=== PATIENT | female | born 2000 | race African-American/Black ===

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

== ENCOUNTER 2019-01-25 10:58 | Inpatient (IN) | payer OTHER ==
[2019-01-25 11:40] VITALS: BMI 36.0
[2019-01-25] MEDS ORDERED: Butorphanol Tartrate 1 MG/ML VIAL SLOW IVP PRN ×2 (12:09→12:57)
[2019-01-25] MEDS: Lactated Ringer's 1,000 ML IV SCH ×2 (12:55→15:07)
[2019-01-25] MEDS ORDERED: Promethazine HCl 25 MG/ML VIAL IM PRN ×2 (12:57→14:37)
[2019-01-25] MEDS ORDERED: Lidocaine 1% (PF) 30 ML VIAL SC PRN (12:57)
[2019-01-25] MEDS ORDERED: Acetaminophen 500 MG TAB PO PRN (12:57)
[2019-01-25] MEDS ORDERED: Docusate 100 MG CAP PO PRN (12:57)
[2019-01-25] MEDS ORDERED: hydrALAZINE 20 MG/ML VIAL SLOW IVP PRN ×2 (12:57→19:25)
[2019-01-25] MEDS ORDERED: Ondansetron PF 4 MG/2 ML Vial IVP PRN ×2 (12:57→14:37)
[2019-01-25] MEDS ORDERED: NS / Oxytocin 40 units/1000ml 1,000 ML IV PRN (12:57)
[2019-01-25] MEDS ORDERED: Ibuprofen 800 MG TAB PO PRN (12:57)
[2019-01-25] MEDS ORDERED: Penicillin G Potassium 5 MILL.UNITS VIAL ONE (12:58)
[2019-01-25] MEDS ORDERED: Sodium Chloride 0.9% 100 ML ONE (12:58)
[2019-01-25] MEDS ORDERED: Penicillin G Potassium 5 MILL.UNITS in Sodium Chloride 0.9% 100 ML IVPB SCH (13:00)
--- NOTE | 2019-01-25 13:20 | HP ---
This is a patient of Aletha Stark, who is currently unavailable and we are assuming care. The patient is seen at bedside by me at 1250 to 1300. LOCATION: R bed 7. REASON FOR ADMISSION: Early spontaneous labor at 37 weeks and 4 days. HISTORY OF PRESENT ILLNESS: This is a 18-year-old, G1, P0, with an EDC of February 11, puts her at 37 weeks and 4 days here with regular contractions about every 3 to 5 minutes. She denies rupture of membranes or vaginal bleeding. She has good movement. She denies any complications. She states that her GBS was just collected this last past Sunday and she does not know the results of that. REVIEW OF SYSTEMS: Complete review of systems was checked and is otherwise negative unless specified in the HPI. PAST MEDICAL HISTORY: Negative. PAST SURGICAL HISTORY: Negative. SOCIAL HISTORY: Negative for alcohol, tobacco, or drug use. ALLERGIES: NONE. PAST OB HISTORY: That she is a primigravida. PHYSICAL EXAMINATION: VITAL SIGNS: Blood pressure is 148/82, heart rate is 80s to 90s, respirations are 18 and nonlabored. GENERAL: She is in no acute distress. ABDOMEN: Soft and nontender. No vaginal bleeding or rupture of membranes noted on exam. I did not perform a cervical exam, but the nurse who called for admission, told me that she was 3 cm dilated, but completely effaced, and zero station with a tight bulging bag of water at the external cervical os. monitor; I have reviewed the heart tracing and the heart tones are in the 130s to 140s and they are category I. Contractions are noted on tocodynamometer about every 3 to 5 minutes. ASSESSMENT: This is a 18-year-old, G1, P0, at 37 weeks with unknown GBS with a first blood pressure of 148/82, unclear if this is pain related or true preeclampsia/PIH. PLAN: 1. Admit to Labor and Delivery. 2. We will follow blood pressures. 3. I have ordered a CMP and a CBC as part of her evaluation. 4. I will not order a urine protein as she is already in labor and urine protein will not alter my management at this time. 5. If blood pressure continues to be high, we will initiate magnesium sulfate and I did discuss that with the patient, but as of right now, we will just continue to follow her. Job ID: [id number]
[2019-01-25 13:24] LABS: Hemoglobin 12.8 g/dL (12.0-16.0); Mean Corpuscular HGB CONC 34.2 g/dL (32.0-36.0); Mean Corpuscular Hemoglobin 29.9 pg (25.0-35.0); Mean Corpuscular Volume 87.4 fL (78.0-98.0); Mean Platelet Volume 9.3 fL (7.4-10.4); Platelet Count 211 thou/uL (130-400); RBC Distribution Width 12.4 % (11.5-14.5); Red Blood Cell (RBC) Count 4.29 mill/uL (4.00-5.20)
[2019-01-25] MEDS ORDERED: Fentanyl 4 mcg/Bup 0.1% Cadd 100 ML ONE (13:42)
[2019-01-25] MEDS ORDERED: NS / Oxytocin 40 units/1000ml 1,000 ML ONE (13:55)
[2019-01-25] MEDS ORDERED: Lidocaine 1% (PF) 30 ML VIAL ONE (13:55)
[2019-01-25 13:57] LABS: HBSAg Index 0.17 S/CO (0-0.99); Hep B Surf Ag Non-Reactive S/CO (NonReactive)
[2019-01-25 13:58] LABS: ALT (SGPT) 8 U/L (8-55); AST (SGOT) 12 U/L (5-30); Albumin 3.6 g/dL (3.5-5.0); Alkaline Phosphatase 135 U/L (40-100); Anion Gap 12 mmol/L (10-20); BUN (Urea Nitrogen) 6 mg/dL (8.4-21.0); Bilirubin, Total 0.3 mg/dL (0.2-1.2); Calc. Creatinine Clearance 248 mL/min (70-130); Carbon Dioxide 21 mmol/L (22-29); Chloride 108 mmol/L (98-107); Estimated GFR-MDRD Greater than 90; Globulin 2.7 g/dL (2.4-3.5); Glucose 82 mg/dL (70-105); Potassium 3.7 mmol/L (3.5-5.1); Protein, Total 6.3 g/dL (6.0-8.3); Sodium 137 mmol/L (136-145)
[2019-01-25 14:04] LABS: Syphilis Antibody Nonreactive (Nonreactive); Syphilis Antibody Index 0.04 S/CO (<1.00 Non-Reactive)
[2019-01-25] MEDS ORDERED: Naloxone HCl 0.4 mg/ml Vial IVP PRN ×2 (14:37)
[2019-01-25] MEDS ORDERED: Lactated Ringer's 500 ML IV PRN (14:37)
[2019-01-25] MEDS ORDERED: ePHEDrine/0.9% NaCl/PF SYRINGE 50 mg/10 ml SLOW IVP PRN (14:37)
[2019-01-25] MEDS ORDERED: diphenhydrAMINE 50 MG/ML VIAL IVP PRN (14:37)
[2019-01-25] MEDS ORDERED: Acetaminophen 325 MG TAB PO PRN (14:37)
[2019-01-25] MEDS ORDERED: Fentanyl 4 mcg/Bupivacaine 0.1% Cassette 100 ML EPIDURAL SCH (14:45)
[2019-01-25] MEDS ORDERED: Communication Order-Pharmacy FS SCH (14:45)
[2019-01-25] MEDS: Penicillin G 2.5 MILL.units 2.5 MILL.UNITS in Premix Bag 1 BAG IVPB SCH (17:57)
--- NOTE | 2019-01-25 19:24 | PDOC.OPDEL ---
OB Operative/Delivery Note Delivery Dr/Surgeon: Lamberto (staff) Assist: Shane LIMA: karen Pre-Delivery Diagnosis: active labor, other (GBS pos; variables just prioir to delivery) Procedure/Post Delivery Dx: spontaneous vaginal delivery Anesthesia: epidural - Findings A Sex: male - 1 min: 8 - 5 min: 9 - Additional Findings/Plan Repaired Obstetrical Laceration: 1st degree (left periurethral, repaired by Dr Angelo (3-[address]); after indwelling I/O placed to protect urethra.) Estimated blood loss: 200 Compilations/Other Findings: No NC; baby vigorous; 3VC, placenta delivered at 1919 (5 minutes after baby; baby at 1914). Will placental delivery. NICU present for delivery Post delivery plan: routine recovery
[2019-01-25] MEDS ORDERED: Benzocaine-Menthol 82.5 ML CAN TOP PRN (19:25)
[2019-01-25] MEDS ORDERED: Bisacodyl 10 MG SUPP PR PRN (19:25)
[2019-01-25] MEDS ORDERED: Acetaminophen/Codeine 30-300mg Tablet PO PRN ×2 (19:25)
[2019-01-25] MEDS ORDERED: Milk Of Magnesia 30 ML UDCUP PO PRN (19:25)
[2019-01-25] MEDS ORDERED: Lanolin Ointment 7 GM TUBE TOP PRN (19:25)
[2019-01-25] MEDS ORDERED: NS / Oxytocin 40 units/1000ml 1,000 ML IV SCH (19:30)
--- NOTE | 2019-01-25 21:11 | PDOC.EVN ---
Event Note - Event Note Event Note: BPs PP are 140/90s...ordered CMP now. No SXS.
[2019-01-25 22:15] LABS: ALT (SGPT) 8 U/L (8-55); AST (SGOT) 15 U/L (5-30); Albumin 3.2 g/dL (3.5-5.0); Alkaline Phosphatase 120 U/L (40-100); Anion Gap 11 mmol/L (10-20); BUN (Urea Nitrogen) 6 mg/dL (8.4-21.0); Bilirubin, Total 0.4 mg/dL (0.2-1.2); Calc. Creatinine Clearance 240 mL/min (70-130); Calcium 8.8 mg/dL (7.8-10.44); Carbon Dioxide 22 mmol/L (22-29); Chloride 108 mmol/L (98-107); Estimated GFR-MDRD Greater than 90; Globulin 2.9 g/dL (2.4-3.5); Glucose 73 mg/dL (70-105); Potassium 3.7 mmol/L (3.5-5.1); Protein, Total 6.1 g/dL (6.0-8.3); Sodium 137 mmol/L (136-145)
[2019-01-26] MEDS: Lactated Ringer's 1,000 ML IV SCH ×7 (01:41→19:18)
[2019-01-26] MEDS: Docusate Calcium (SURFAK) 240 MG CAP PO SCH ×3 (01:42→21:58)
[2019-01-26] MEDS: Ibuprofen 800 MG TAB PO SCH ×4 (01:43→18:00)
[2019-01-26] MEDS: Penicillin G 2.5 MILL.units 2.5 MILL.UNITS in Premix Bag 1 BAG IVPB SCH (01:43)
[2019-01-26 04:56] LABS: Hemoglobin 10.5 g/dL (12.0-16.0)
--- NOTE | 2019-01-26 06:41 | PDOC.PP ---
Post Progress Note Post Day #: 1 Subjective: 18 yo G1 delivered via approx 1700 yesterday. Pt able to ambulate, reports no pain, passing flatus, minimal lochia, tolerating po. No concerns. BPs since transfer to have all been in the normal range. No headache, cp, sob, NVDC, abd pain. PO intake tolerated: yes Flatus: yes Ambulation: yes Vital Signs (12 hours) Temp Pulse Resp BP BP 01/26/19 04:05 99.1 F 60 20 123/69 01/26/19 02:45 98.9 F 60 20 125/64 01/26/19 01:40 99.2 F 67 20 143/77 H Weight Weight 104.326 kg - Physical Examination General: NAD Cardiovascular: no m/r/g, RRR Respiratory: clear to auscultation bilaterally Abdominal: + bowel sounds, no distention, appropriately TTP Fundus firm & at: below umbilicus Extremities: negative homans (B) Neurological: no gross focal deficits Psychiatric: normal affect Result Diagrams: 01/26/19 04:14 01/25/19 21:38 Additional Labs: Post Labs Blood Type B POSITIVE 01/25/19 13:23 Hep Bs Antigen Non-Reactive S/CO (NonReactive) 01/25/19 13:06 (1) Vaginal delivery Code(s): O80 - ENCOUNTER FOR FULL-TERM UNCOMPLICATED DELIVERY Status: Acute - Assessment/Plan 1) TIUP, delivered - pp day one primigravid mother - she has met all pp milestones - BP remains normal, one elevated at 142 systolic on initial transfer to floor, no severe range or features and trended down after to 120s systolic - will monitor throughout the day and plan for DC to home tomorrow
[2019-01-26] MEDS ORDERED: Adacel (T-DAP) 0.5 ML SYRINGE IM ONE (09:00)
[2019-01-26] MEDS ORDERED: Varicella virus, LIVE 0.5 ML VIAL SC ONE (09:00)
[2019-01-26 09:30] LABS: HIV (1/2) Antibody/Antigen Non-Reactive (NonReactive); HIV 1/2 INDEX 0.09 S/CO (<1.00)
[2019-01-26] MEDS: Ferrous Sulfate 325 MG TAB PO SCH ×2 (09:44→17:59)
[2019-01-26] MEDS: Prenatal Vitamin 1 TAB PO SCH (09:45)
[2019-01-26] MEDS ORDERED: FLU VACC QS2019-20(6MOS UP)/PF 60 MCG/0.5 ML SYRINGE IM ONE (21:00)
[2019-01-27] MEDS: Ibuprofen 800 MG TAB PO SCH ×3 (00:19→08:22)
[2019-01-27] MEDS: Ferrous Sulfate 325 MG TAB PO SCH (07:35)
--- NOTE | 2019-01-27 07:43 | DN ---
DATE OF PROCEDURE: 01/25/2019 ADDENDUM: In brief, it is important to note that the patient while she was pushing and arm was bent, did have a systolic blood pressure reading of 170. However, she is asymptomatic and I do not believe that this reflects preeclampsia as it was taken in the middle of a contraction and during pushing. This is simply a note to document that I was aware of the blood pressure, but we will continue to monitor here. Job ID: [id number]
[2019-01-27 08:13] VITALS: BP 151/84; TEMP 97.8
[2019-01-27] MEDS: Docusate Calcium (SURFAK) 240 MG CAP PO SCH (08:22)
[2019-01-27] MEDS: Prenatal Vitamin 1 TAB PO SCH (08:22)
[2019-01-27] MEDS: Lactated Ringer's 1,000 ML IV SCH ×2 (11:43)
== END 2019-01-27 15:35 | disposition home or self-care (01) | DRG 807 ==
LOC: L&D/OP 10:58 → L&D 15:02 → 3SW 01-26 01:36
PROVIDERS: ADMIT Obstetrics & Gynecology; ATTEND Obstetrics & Gynecology
PROC: 10E0XZZ Delivery of Products of Conception, External Approach (ICD-10-PCS; principal; 2019-01-25)
PROC: 0HQ9XZZ Repair Perineum Skin, External Approach (ICD-10-PCS; 2019-01-25)
PROC: 3E02340 Introduction of Influenza Vaccine into Muscle, Percutaneous Approach (ICD-10-PCS; 2019-01-25)
PROC: 3E0234Z Introduction of Serum, Toxoid and Vaccine into Muscle, Percutaneous Approach (ICD-10-PCS; 2019-01-25)
DX: O99.824 Streptococcus B carrier state complicating childbirth (principal); Z37.0 Single live birth; O70.0 First degree perineal laceration during delivery; Z3A.37 37 weeks gestation of pregnancy; Z23 Encounter for immunization
CPT/HCPCS: 36415; 51702; 80053; 85014; 85018; 85027; 86780; 86850; 86900; 86901; 87340; 87389; 90715; 99285; J2001; J2540; J3490

== ENCOUNTER 2019-05-24 02:14 | Emergency (ER) | payer OTHER, SELFPAY ==
[2019-05-24] MEDS ORDERED: Lidocaine 1% (PF) 30 ML VIAL ONE (03:09)
== END 2019-05-24 03:48 | disposition home or self-care (01) ==
LOC: ERS 02:14
DX: N75.0 Cyst of Bartholin's gland (principal)
CPT/HCPCS: 56420; J2001

== ENCOUNTER 2022-08-14 12:18 | Outpatient (CLI) | payer OTHER | END 2022-08-14 12:19 | disposition home or self-care (01) | LOC: BICULT 12:18 | PROVIDERS: ATTEND Family Medicine | DX: Z34.82 Encounter for supervision of other normal pregnancy, second trimester (principal); Z3A.24 24 weeks gestation of pregnancy | CPT/HCPCS: 76805 ==